=== PATIENT | male | born 1970 | race Caucasian/White ===

== ENCOUNTER 2024-05-20 03:40 | Day surgery (SDC) | payer OTHER ==
[~2024-05-20] VITALS: Ht 188 cm; Wt 102.0 kg
[2024-05-20] VITALS (202 sets, daily range): BP systolic 116–160; BP diastolic 74–103
--- NOTE | 2024-05-20 07:00 | NUR ---
Patient arrived to the ANR suite, identification and demographics confirmed. Patient to room 10, AAO, ambulatory, vitals obtained, ID/allergy/fall bands placed, changed into hospital gown, MARIZA hose, and non-slip socks. Procedure and timeline explained for treatment and discharge. All questions answered and the patient presents no concerns at this time. V/S assessed, call light is near.
[2024-05-20] MEDS ORDERED: FAMOTIDINE 20 MG/TAB PO PRN (07:30)
[2024-05-20] MEDS ORDERED: ALBUTEROL SULFATE 2.5 MG VIAL IN PRN (07:30)
[2024-05-20] MEDS ORDERED: CYANOCOBALAMIN 500 MCG/TAB ( B12) PO PRN (07:30)
[2024-05-20] MEDS ORDERED: cloNIDine HCL 0.1 MG/TAB PO PRN (07:30)
[2024-05-20] MEDS ORDERED: LACTATED RINGER'S 1,000 ML IV PRN ×3 (07:30→19:00)
[2024-05-20] MEDS ORDERED: PANTOPRAZOLE SODIUM Sesquihydr 40 MG/TAB PO PRN (07:30)
[2024-05-20] MEDS ORDERED: SCOPOLAMINE 1.5 MG DIS TD PRN (07:30)
[2024-05-20] MEDS ORDERED: diazePAM 5 MG/TAB PO PRN ×2 (07:30→08:30)
--- NOTE | 2024-05-20 07:30 | NUR ---
Dr. Jiménez telephoned with patient intake information including usage, dose, last dose/time taken and initial vital signs. Patient history and allergies reviewed with MD. Orders received for 10 + 5 PRN mg PO Valium and 0.3 mg PO Clonidine now. Will reassess per protocol in 1.5 hours and update MD with assessment and vitals.
[2024-05-20] MEDS ORDERED: ASCORBIC ACID 4,000 MG in SODIUM CHLORIDE 0.9% 1,000 ML IV SCH (08:00)
[2024-05-20 08:29] LABS: BASO% 0.8 % (0-3); EOS% 4.1 % (0-8); HEMATOCRIT 41.9 % (39.0-50.0); IMMATURE GRANULOCYTES 0.2 % (0.0-5.0); MEAN CELL VOLUME 94.6 fL CALC (80.0-100.0); MEAN CORPUSCULAR HGB 31.6 pG CALC (26.0-32.0); MEAN CORPUSCULAR HGB CONC 33.4 g/dL CAL (32.0-36.0); MONO% 5.5 % (2-13); NEUT# 3.68 thou/uL (1.82-7.42); NEUT% 57.4 % (42-76); RED BLOOD COUNT 4.43 mill/uL (4.70-6.10); RED CELL DISTRI WIDTH 12.9 % (11.5-15.5)
[2024-05-20] MEDS ORDERED: MELOXICAM7.5 MG PO (08:31)
[2024-05-20] MEDS ORDERED: KLONOPIN0.5 MG PO (08:32)
[2024-05-20] MEDS ORDERED: CRESTOR5 MG PO (08:33)
[2024-05-20] MEDS ORDERED: BENICAR40 MG PO (08:33)
[2024-05-20] MEDS ORDERED: LEXAPRO5 MG PO (08:34)
[2024-05-20] MEDS ORDERED: AMLODIPINE BESYL5 MG PO (08:35)
[2024-05-20 08:48] LABS: ALBUMIN 4.4 g/dL (3.2-5.0); BILIRUBIN, TOTAL 0.6 mg/dL (0.2-1.3); CREATININE 1.3 mg/dL (0.7-1.3); POTASSIUM 4.5 mmol/l (3.5-5.1)
--- NOTE | 2024-05-20 09:00 | NUR ---
Patients vital signs within pre-treatment parameters for 1.5 hour recheck. No indication for additional Valium or Clonidine as patient is resting comfortably and vital signs are within range. Patient resting comfortably in bed. Easily aroused, maintains focus, and drifts back to sleep. No signs of active withdrawal or distress noted at this time. Continuous SPO2, rhythm, and respiratory monitoring initiated. IVF @ 250 mL/HR, room air, VSS.
[2024-05-20] MEDS ORDERED: POTASSIUM CHLORIDE 20 MEQ/100 ML BAG IV PRN (09:15)
[2024-05-20] MEDS ORDERED: PROPOFOL 100 ML IV PRN (09:15)
[2024-05-20] MEDS ORDERED: MIDAZOLAM HCL 2 MG/2 ML VIAL IV PRN (09:15)
[2024-05-20] MEDS ORDERED: DEXAMETHASONE SODIUM PHOSPHATE PF 10 MG/ML SDV IV PRN ×2 (09:15→19:00)
[2024-05-20] MEDS ORDERED: SUCCINYLCHOLINE CHLORIDE 20 MG/ML 10ML VIAL IV PRN (09:15)
[2024-05-20] MEDS ORDERED: MAGNESIUM SULFATE HEPTAHYDRATE 100 ML IV PRN (09:15)
[2024-05-20] MEDS ORDERED: THIAMINE HCL 100 MG/ML 2ML VIAL IV PRN (09:15)
[2024-05-20] MEDS ORDERED: LIDOCAINE HCL 1% (10MG/ML) 100 MG/10 ML MDV IV PRN (09:15)
[2024-05-20] MEDS ORDERED: PROPOFOL 10 MG/ML 100ML VIAL IV PRN (09:15)
[2024-05-20] MEDS ORDERED: diazePAM 5 MG/TAB VT PRN (09:15)
[2024-05-20] MEDS ORDERED: cloNIDine HYDROCHLORIDE 100 MCG/ML 10 ML INJ IV PRN (09:15)
[2024-05-20] MEDS ORDERED: LIDOCAINE HCL 1% (10MG/ML) 100 MG/10 ML MDV VT PRN ×2 (09:15)
[2024-05-20] MEDS ORDERED: NALTREXONE HCL 50 MG/TAB VT PRN (09:15)
[2024-05-20] MEDS ORDERED: cloNIDine HCL 0.1 MG/TAB VT PRN (09:15)
[2024-05-20] MEDS ORDERED: OCTREOTIDE ACETATE 100 MCG/VIAL SDV SC PRN (09:15)
[2024-05-20] MEDS ORDERED: ONDANSETRON HCl 4 MG/2 ML SDV IV PRN ×3 (09:15→19:00)
[2024-05-20] MEDS ORDERED: STERILE WATER FOR IRRIGATION 1,000 ML BTL IR PRN (09:15)
[2024-05-20] MEDS ORDERED: DiphenhydrAMINE HCL 50 MG/ML SDV IV PRN (09:15)
[2024-05-20] MEDS ORDERED: ROCURONIUM BROMIDE 10 MG/ML 5ML VIAL IV PRN (09:15)
[2024-05-20] MEDS ORDERED: PHENYLEPHRINE HCL 10 MG/ML VIAL ONE (09:43)
[2024-05-20] MEDS ORDERED: SODIUM CHLORIDE 0.9% 250 ML IV ONE (09:44)
--- NOTE | 2024-05-20 11:35 | NUR ---
Induction Note Patient to ANR procedure room. Time out performed at 1052. Patient placed on monitors, Melinda hugger, bilateral wrist restraints applied for ET tube protection. Versed 5mg given IV push at 1122 Tourniquet applied to right arm Lidocaine 100mg given [id number] IV push followed by Rocoronium 10mg at 1124 IV push and held for 90 seconds. Propofol bolus of 200mg given at 1125 IV push. Succinylcholine 80mg given IV push at 1126. Smooth intubation with 7.5 ETT. Positive CO2. Positive Auscultation for air exchange. Patient placed on ventilator for spontaneous ventilation. Placed on Propofol IV drip at 1127. OG inserted. Positive air on auscultation. Positive gastric content. Stomach washed at this time. Naltrexone 50mg given via OG tube with Clonidine 0.2 mg given via OG Tube. OG clamped for 45 minutes. Will monitor patient for symptoms of withdrawal and adjust propfol accordingly.
--- NOTE | 2024-05-20 12:20 | NUR ---
OG open note OG open at this time. Gastric content draining into drainage bag. OG to drain for 45 minutes. Propofol will be titrated down based on patient.
--- NOTE | 2024-05-20 13:05 | NUR ---
OG close note Stomach washed at this time. Naltrexone 50 mg with Clonidine 0.2 mg via OG tube. OG will be clamped for 45 minutes.
--- NOTE | 2024-05-20 14:35 | NUR ---
OG close note Stomach washed at this time. Naltrexone 50 mg with Clonidine 0.2 mg via OG tube. OG will be clamped for 45 minutes.
[2024-05-20] MEDS ORDERED: NALTREXONE50 MG PO (16:46)
[2024-05-20] MEDS ORDERED: KLONOPIN2 MG PO (16:47)
[2024-05-20] MEDS ORDERED: CLONIDINE0.1 MG PO (16:47)
[2024-05-20] MEDS ORDERED: LIDOCAINE HCL 1% (10MG/ML) 100 MG/10 ML MDV IV SCH (17:00)
[2024-05-20] MEDS ORDERED: ACETAMINOPHEN 1,000 MG/100 ML VIAL IV SCH (17:00)
[2024-05-20] MEDS ORDERED: KETOROLAC TROMETHAMINE 30 MG/ML SDV IV SCH (17:00)
--- NOTE | 2024-05-20 17:00 | NUR ---
OG close note Stomach washed at this time. Naltrexone 12.5 mg with Clonidine 0.2 mg via OG tube. OG will be clamped for 45 minutes.
--- NOTE | 2024-05-20 17:45 | NUR ---
Extubation note Closing medications given Benadryl 50mg IV push, Decadron 10mg IV push,Magnesium 4 grams IV, Zofran 8mg IV push, Octreotide 100mcg SC. Stomach washed out prior to extubation. Suctioned gastric content. OG removed. Patient extubated. Propofol Discontinued. Wrist restraints removed. Melinda hugger Removed. See ANR Moderate sedate recovery record for further notes and assessment.
--- NOTE | 2024-05-20 18:22 | NUR ---
LEFT MESSAGE FOR BOTH SHAUNNA (SUPPORT) AND LESLIE, LETTING THEM KNOW PT'S CONDITION AND NEXT STEPS.
[2024-05-20] MEDS ORDERED: ACETAMINOPHEN 1,000 MG/100 ML VIAL IV PRN (19:00)
[2024-05-20] MEDS ORDERED: KETOROLAC TROMETHAMINE 30 MG/ML SDV IV PRN (19:00)
[2024-05-20] MEDS ORDERED: ACETAMINOPHEN 500 MG TAB PO PRN (19:00)
[2024-05-20] MEDS ORDERED: LORazepam 2 MG/ML IV PRN ×2 (19:00)
[2024-05-20] MEDS ORDERED: PROMETHAZINE HCL 25 MG in SODIUM CHLORIDE 0.9% 50 ML IV PRN (19:00)
[2024-05-20] MEDS ORDERED: PROMETHAZINE HCL 12.5 MG in SODIUM CHLORIDE 0.9% 50 ML IV PRN (19:00)
[2024-05-20] MEDS ORDERED: HALOPERIDOL LACTATE 5 MG/ML SDV IV PRN (19:00)
--- NOTE | 2024-05-20 20:00 | NUR ---
RECEIVED REPORT FROM ANR NURSE NEAL. PT NOTED LAYING IN BED SEMI FOWELRS, ON 2L O2 NC. PT AROUSABLE TO SPEECH BUT PRESENTS DROWSY. PT DENIES ANY N/V/P. NURSING ASSESSMENT COMPLETED AND IV SITE APPEARS HEALTHY AND INTACT WITH FLUIDS RUNNING PER EMAR. VSS. NO S/S OF DISTRESS. BED ALARM ON AND SAFETY PRECAUTIONS IN PLACE.
[2024-05-20] MEDS ORDERED: PATIENT' OWN MED CONTROLLED 1 EA DOSE IV PRN (21:00)
--- NOTE | 2024-05-20 21:51 | NUR ---
PT WAS STATING NEED TO URINATE, REFUSED USING URINAL. CIVIL DRAFTSMAN AND DINKEY ENGINE FIRER/FIREMAN ASSISTED PT TO BATHROOM, GAIT STEADY, ABLE TO FOLLOW COMMANDS AND KEEP EYES OPEN. PT VOIDED BUT C/O DIFFICULTY STARTING STREAM. ASSISTED BACK INTO BED. DENIES ANY N/V/P AT THIS TIME. BED ALARM ON AND SAFETY PRECAUTIONS IN PLACE. PT ON RM AIR.
[2024-05-20] MEDS ORDERED: clonazePAM 1 MG/TAB PO PRN (23:00)
[2024-05-20] MEDS ORDERED: cloNIDine HCL 0.1 MG/TAB PO SCH (23:00)
--- NOTE | 2024-05-21 | NUR ---
PT LAYING IN BED SUPINE, RESTING COMFORTABLY. NO S/S OF DISTRESS. BED ALARM ON AND SAFETY PRECAUTIONS IN PLACE.
[2024-05-21] MEDS ORDERED: clonazePAM 1 MG/TAB PO PRN ×2 (04:00→08:00)
[2024-05-21] MEDS ORDERED: cloNIDine HCL 0.1 MG/TAB PO PRN (04:00)
[2024-05-21] MEDS ORDERED: NALTREXONE HCL 50 MG/TAB PO SCH (04:00)
[2024-05-21 04:26] VITALS: BP 152/84
--- NOTE | 2024-05-21 05:04 | NUR ---
PT RECEIVED 0400 MEDICATIONS PER EMAR AND OTLERATED WELL. PT IS A/OX4, RM AIR. DENIES ANY N/V/P AT THIS TIME. PT HAS BEEN ABLE TO AMBULATE TO BATHROOM WITH STAND BY ASSIST. GAIT STEADY. VOIDS WITHOUT DIFFICULTY NOW. VSS. NO S/S OF DISTRESS. BED ALARM ON AND SAFETY PRECAUTIONS IN PLACE.
[2024-05-21 05:42] LABS: BASO% 0.2 % (0-3); HEMATOCRIT 41.7 % (39.0-50.0); HEMOGLOBIN 14.3 g/dl (14.0-18.0); IMMATURE GRANULOCYTES 0.2 % (0.0-5.0); LYMPH% 10.3 % (15-41); MEAN CELL VOLUME 93.3 fL CALC (80.0-100.0); MEAN CORPUSCULAR HGB CONC 34.3 g/dL CAL (32.0-36.0); MONO% 2.7 % (2-13); NEUT# 8.48 thou/uL (1.82-7.42); NEUT% 86.6 % (42-76); RED BLOOD COUNT 4.47 mill/uL (4.70-6.10); RED CELL DISTRI WIDTH 12.6 % (11.5-15.5)
[2024-05-21 05:53] LABS: ALBUMIN 4.1 g/dL (3.2-5.0); MAGNESIUM 2.6 mg/dL (1.6-2.3); POTASSIUM 4.6 mmol/l (3.5-5.1); TOTAL PROTEIN 6.8 g/dL (6.3-8.2)
--- NOTE | 2024-05-21 07:24 | NUR ---
patinet resting in bed; room air; breathing unlabored and even; denied any pain; denied any n/d/v at this time; iv site clean and intact running with LR @100; denied needing anything; patient labs within program range; no complaints at this time; call light within reach,verbalized understanding on how to use, personal items in ANR locker; bed in lowest postion; bed alarm activated
[2024-05-21] MEDS ORDERED: PANTOPRAZOLE SODIUM Sesquihydr 40 MG/TAB PO SCH (08:00)
[2024-05-21] MEDS ORDERED: cloNIDine HCL 0.1 MG/TAB PO SCH (08:00)
[2024-05-21] MEDS ORDERED: ACETAMINOPHEN 325 MG/TAB PO SCH (08:00)
[2024-05-21 08:08] VITALS: BP 137/70
[2024-05-21 08:12] VITALS: BP 137/70
[2024-05-21] MEDS ORDERED: Cholecalciferol 2,000 UNIT/TAB PO PRN (09:00)
[2024-05-21] MEDS ORDERED: ATORVASTATIN CALCIUM 10 MG/TAB PO SCH (09:00)
[2024-05-21] MEDS ORDERED: ACETAMINOPHEN 500 MG TAB PO PRN (09:00)
[2024-05-21] MEDS ORDERED: MAGNESIUM OXIDE 400 MG/TAB PO PRN (09:00)
[2024-05-21] MEDS ORDERED: LOSARTAN Potassium 50 MG/TAB PO SCH (09:00)
[2024-05-21] MEDS ORDERED: amLODIPine BESYLATE 5 MG/TAB PO SCH (09:00)
--- NOTE | 2024-05-21 10:03 | NUR ---
patient stated he feels nauseous after getting up to go to bathroom, medicated with zofran 8mg; patient tolerated medication admin; saftey measures in place; no complaints
--- NOTE | 2024-05-21 10:16 | NUR ---
patient stating that he feels that he needs to go to the bathroom but can't, states that he takes a daily laxative at home and feels that he needs something to help him go, called for Dr. Jiménez, awaiting for provider response, did walk patient down hallway to assit with discomfort.
[2024-05-21] MEDS ORDERED: DOCUSATE CALCIUM 240 MG/CAP PO SCH (11:00)
--- NOTE | 2024-05-21 11:21 | NUR ---
kyler was seen putting fingers in mouth, and vomited, educated patient on complications that can happen when attempting to make yourself vomit, medicated per EMAR;medicated with colacx for diffiuculties having a bowel movement, patient tolerated, verbal order from Dr. Jiménez, order in chart
--- NOTE | 2024-05-21 12:36 | NUR ---
patient in bed, room air; breathing unlabored and even; denied any n/d/v at this time; Dr. Jiménez talked to patient about the discomfort in his abd area; and giving him a suppostory to help him have a bowel movement, awaiting pharmacy at this time; call light within reach,verbalized understanding on how to use, personal items in ANR; bed in lowest postion; bed alarm activated
[2024-05-21] MEDS ORDERED: BISACODYL 10 MG SUPP RE SCH (13:00)
[2024-05-21] MEDS ORDERED: Pantoprazole Sodium 40 MG VIAL (Protonix) IV SCH (14:00)
[2024-05-21] MEDS ORDERED: BISMUTH SUBSALICYLATE 262 MG CHW PO SCH (15:30)
--- NOTE | 2024-05-21 16:01 | NUR ---
PT STATES HE IS "FEELING MUCH BETTER, ABOUT 90% BETTER"
--- NOTE | 2024-05-21 16:55 | NUR ---
IV site discontinued, cath intact. No edema , no redness, voices no discomfort. Discharge instructions given. Patient verbalizes understanding of same. Discharged in stable condition via Ambulatory to Home with family. All belongings sent with pt.
== END 2024-05-21 16:56 | disposition home or self-care (01) | DRG 897 ==
LOC: ANR 03:40 → MS2 03:40 → ANR 07:00
PROVIDERS: ATTEND Anesthesiology Critical Care Medicine
DX: F11.20 Opioid dependence, uncomplicated (principal)
CPT/HCPCS: J0131; J1100; J2060; J2354; J2470; J3475